=== PATIENT | female | born 2005 | race American Indian/Alaskan Native ===

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

== ENCOUNTER 2024-02-21 13:06 | Inpatient (IN) | payer OTHER ==
[2024-02-21] VITALS (7 sets, daily range): BP systolic 97–105; BP diastolic 50–64
[~2024-02-21] VITALS: Ht 175.3 cm; Wt 67.0 kg
[~2024-02-21 13:06] MED LIST: PEPCID20 MG PO; PREDNISONE20 MG PO; ZYRTEC10 MG PO
[2024-02-21 13:53] LABS: BASOPHILS 0.5 % (0-2); EOSINOPHILS 0.7 % (0-6); HEMATOCRIT 35.9 % (35.0-50.0); HEMOGLOBIN 11.6 g/dL (12.0-18.0); LYMPHOCYTES 22.5 % (24-44); MCH 27.7 (27-36); MCHC 32.3 g/dl (30-36); MCV 85.8 fl (81-99); MONOCYTES 7.7 % (0-12); NEUTROPHILS 68.6 % (39-80); PLATELET COUNT 258 K/uL (140-440); RBC 4.18 M/ul (4.3-5.7); RDW 16.9 (10.5-15.0)
[2024-02-21 14:09] LABS: ALBUMIN 3.8 g/dL (3.4-5.0); ALBUMIN/GLOBULIN RATIO 1.12 (1.1-2.4); ANION GAP 14.3 (7-21); BILIRUBIN, TOTAL 1.5 ng/dL (0.2-1.0); BUN/CREATININE RATIO 8.21 (6.0-28.6); CALCIUM 8.7 mg/dL (8.5-10.1); CREATININE, SERUM 0.73 mg/dL (0.55-1.02); POTASSIUM 3.3 mmol/L (3.5-5.1); PROTEIN, TOTAL 7.2 g/dL (6.4-8.2)
[2024-02-21] MEDS ORDERED: ondansetron HCL 4 MG/2 ML VIAL IV ONE (14:30)
[2024-02-21] MEDS ORDERED: fentaNYL citrate 100 MCG/2 ML VIAL IV ONE (14:30)
[2024-02-21] MEDS ORDERED: SODIUM CHLORIDE 0.9% 1,000 ML IV ONE (14:30)
[2024-02-21 15:49] LABS: BILIRUBIN, URINE NEGATIVE (negative); BLOOD/HGB, URINE TRACE-I (Negative); KETONE, URINE SMALL (Negative); LEUK ESTERASE, URINE NEGATIVE (negative); NITRITE, URINE NEGATIVE (negative); PH, URINE 5.5 (5-7)
[2024-02-21 16:00] LABS: BACTERIA, URINE RARE /hpf (negative); CASTS, URINE NONE SEEN \\lpf; COLLECTION TYPE, URINE CLEAN CATCH; CRYSTALS, URINE NONE SEEN (0-1+); EPITHELIAL CELLS, URINE SQUAMOUS 4+ /lpf (0-1+); RED BLOOD CELLS, URINE 0-1 /hpf (0-5); REFLEX CULTURE, URINE No (No)
[2024-02-21] MEDS ORDERED: CEFTRIAXONE/SODIUM CHLORIDE 1 GM/100 ML PIGGYBACK IV ONE (17:00)
[2024-02-21 17:45] LABS: INR 1.19 (0.80-1.30); PROTIME 14.3 Sec (11.2-14.2)
[2024-02-21] MEDS ORDERED: HEParin SOD (PORCINE) 5,000 UNIT/0.5 ML SYR SUB-Q ONE (17:45)
[2024-02-21] MEDS ORDERED: MIDAZOLAM HCL 2 MG/2 ML VIAL ONE (18:02)
[2024-02-21] MEDS ORDERED: LIDOCAINE HCL 2% 5 ML SDV ONE (18:02)
[2024-02-21] MEDS ORDERED: propofoL 200 MG/20 ML VIAL ONE (18:02)
[2024-02-21] MEDS ORDERED: LIDOCAINE HCL 2% 20 MG/ML VIAL INJ ONE (18:02)
[2024-02-21] MEDS ORDERED: ROCURONIUM BROMIDE 50 MG/5 ML SYR ONE (18:02)
[2024-02-21] MEDS ORDERED: ACETAMINOPHEN 1,000 MG/100 ML VIAL ONE (18:02)
[2024-02-21] MEDS ORDERED: SUGAMMADEX SODIUM 200 MG/2 ML ML ONE (18:02)
[2024-02-21] MEDS ORDERED: fentaNYL citrate 100 MCG/2 ML VIAL ONE (18:02)
[2024-02-21] MEDS ORDERED: KETOROLAC TROMETHAMINE 30 MG/ML VIAL ONE (18:02)
[2024-02-21] MEDS ORDERED: DEXAMETHASONE SOD PHOS 4 MG/ML VIAL ONE (18:02)
[2024-02-21] MEDS ORDERED: SUCCINYLCHOLINE IN 0.9% NACL 200 MG/10 ML SYRINGE ONE (18:02)
[2024-02-21] MEDS ORDERED: ondansetron HCL 4 MG/2 ML VIAL ONE (18:02)
[2024-02-21] MEDS ORDERED: METOCLOPRAMIDE HCL 10 MG/2 ML SDV IV PRN (19:00)
[2024-02-21] MEDS ORDERED: PROCHLORPERAZINE EDISYLATE 10 MG/2 ML VIAL IV PRN ×2 (19:00→20:00)
[2024-02-21] MEDS ORDERED: IBLOOD GLUCOSE TEST STRIP 1 EA TEST VI PRN (19:00)
[2024-02-21] MEDS ORDERED: HYDROmorphone HCL 1 MG/ML SYR IV PRN ×2 (19:00→20:00)
[2024-02-21] MEDS ORDERED: ondansetron HCL 4 MG/2 ML VIAL IV PRN ×2 (19:00→20:00)
[2024-02-21] MEDS ORDERED: fentaNYL citrate 50 MCG/ML SDV IV PRN (19:00)
[2024-02-21] MEDS ORDERED: droPERidol 5 MG/2 ML VIAL IV PRN (19:00)
[2024-02-21] MEDS ORDERED: NALOXONE HCL 0.4 MG SYR IV PRN (19:00)
[2024-02-21] MEDS ORDERED: LACTATED RINGER'S 1,000 ML IV ONE (19:23)
--- NOTE | 2024-02-21 19:58 | CONS ---
[facility] [address], [place] [address] Signed DATE OF CONSULTATION: 02/21/2024 CHIEF COMPLAINT: Right lower quadrant abdominal pain. HISTORY OF PRESENT ILLNESS: Tram is a 18-year-old, healthy young lady, who presents with three days of increasing right lower quadrant abdominal pain associated with anorexia. She came to the emergency room for evaluation. She has localized peritonitis with a normal white count; however, the CT scan shows the appendix at 1.4 cm with periappendiceal inflammation. She has been given pain control, Rocephin and Flagyl. I was asked to see her as a local general surgeon here in the emergency room. PAST MEDICAL HISTORY: None. PAST SURGICAL HISTORY: None. SOCIAL HISTORY: She does not smoke or drink. She goes to [facility] for her primary care. Her mother is Jocelyn at [phone] and her cousin is Hannah at [phone]. 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 FAMILY HISTORY: None. REVIEW OF SYSTEMS: She had 10 systems reviewed. There were no new findings. ALLERGIES: None. MEDICATIONS: None. PHYSICAL EXAMINATION: VITAL SIGNS: Her blood pressure is 108/65, heart rate 72, respiratory rate 18, temperature is 97.8 100% on room air. She is 5 feet 9 inches tall, at 69 kg with a body mass index of 21. GENERAL: Tram is a 18-year-old young lady, lying supine in her ER bed, watching TV with her mom in the room. She does not appear systemically ill or toxic. She is alert, awake, and interactive. Electronically Signed By: BIANCA MORALES MD 02/21/241957 PATIENT NAME: TRAM BARBOSA CONSULTATION DATE OF : 04 REPORT #: [id number] PHYSICIAN: BIANCA MORALES MD PCP: [facility] REPORT IS CONFIDENTIAL AND NOT TO BE RELEASED WITHOUT AUTHORIZATION [facility] [address], [place] [address] Signed LUNGS: Clear to auscultation bilaterally. HEART: Regular rate and rhythm without murmurs. ABDOMEN: Soft and flat, but she has localized peritonitis slightly below McBurney's point in the right lower quadrant. LABORATORY DATA: Her white blood count 8.5, hemoglobin 11.6, and neutrophils 68. Electrolytes unremarkable. Albumin 3.8. Beta-hCG is negative. RADIOGRAPHIC STUDIES: CT scan of abdomen and pelvis is reviewed, both the report and the images. One can easily see the thickened appendix in the right lower quadrant with periappendiceal inflammation. She also has bilateral benign-appearing ovarian cyst. ASSESSMENT/PLAN: Tram is a 18-year-old young lady, who presents with appendicitis. I have reviewed with her the above findings as well as the location and function of the appendix. We have discussed laparoscopic versus open appendectomy. She understands expected intraop and postop course. We did review the risk including, but not limited to bleeding, infection, scarring, change in contour of the skin, damage to bowel, appendiceal stump leak, postoperative intraabdominal abscess, incisional hernias, and other unforeseen comorbidities. She and had her mom have expressed understanding, would like to proceed. MD CHET Avina/JESSICAL /[id number] cc: Patient Chart [facility] Bianca Morales MD Electronically Signed By: BIANCA MORALES MD 02/21/241957 PATIENT NAME: RAÚL TRAM WHITTAKER CONSULTATION DATE OF : 04 REPORT #: [id number] PHYSICIAN: BIANCA MORALES MD PCP: [facility] REPORT IS CONFIDENTIAL AND NOT TO BE RELEASED WITHOUT AUTHORIZATION [address] [place], [place] [address] Signed Copies: BIANCA MORALES MD ~ Electronically Signed By: BIANCA MORALES MD 02/21/241957 PATIENT NAME: TRAM BARBOSA CONSULTATION DATE OF : 04 REPORT #: [id number] PHYSICIAN: BIANCA MORALES MD PCP: [facility] REPORT IS CONFIDENTIAL AND NOT TO BE RELEASED WITHOUT AUTHORIZATION
[2024-02-21] MEDS ORDERED: DEXTROSE 5% - LACTATED RINGERS 1,000 ML IV SCH (20:00)
[2024-02-21] MEDS ORDERED: ACETAMINOPHEN 650 MG SUPP PR PRN (20:00)
[2024-02-21] MEDS ORDERED: ACETAMINOPHEN 325 MG TAB PO PRN (20:00)
[2024-02-21] MEDS ORDERED: HYDROCODONE/ACETA 5/325 TAB PO PRN (20:00)
[2024-02-21] MEDS ORDERED: PANTOPRAZOLE SODIUM 40 MG/10 ML VIAL IV SCH (20:02)
--- NOTE | 2024-02-21 20:03 | NUR ---
02/21/242002 Gertrudis Helton 1947- PT PRESENTS TO PACU, SUPINE POSITION, NON REACTIVE TO STIMULUS. LR INFUSING TO LFA IV. OPA IN PLACE WITH 6L OF O2 PER MASK, BREATHING EVEN AND NON LABORED, MAINTAINING OWN AIRWAY WITH JUST OPA. DRESSING IN PLACE TO ABD, SOFT, NON DISTENDED. ALL MONITORS IN PLACE. ICE PLACED TO ABD. 1955- PT REACTIVE TO STIMULUS, TURNS HEAD TOWARD VOICE. COUGHING SOME, OPA REMOVED, THICK BLOODY SPUTUM CAME WITH OPA. O2 REMAINS IN PLACE AT THIS TIME. PT KEEPS EYES CLOSED BUT DENIES PAIN OR NAUSEA. 1956- MOVED TO ROOM AIR AT THIS TIME. 2001- PT FOLLOWS COMMANDS AND ANSWERS QUESTIONS BUT KEEPS EYES CLOSED. PT CONTINUES TO REST. PT MAKING SMALL SOUNDS IN SLEEP.
--- NOTE | 2024-02-21 20:44 | NUR ---
PATIENT ARRIVED TO UNIT AROUND 2019. REPORT RECEIVED FROM OR NURSE. LAP SITES X 3 CDI. PATIENT C/O TOLLERABLE PAIN AT THIS TIME 12/08. DENIED NEED FOR PAIN MEDICATIONS AT THIS TIME. BOWEL TONES ABSENT AT THIS TIME. DENIES ANY NAUSEA. MAINTANCE IVF HUNG. INFUSING WITH NO ISSUES OR CONCERNS. VSS. FAMILY AT BEDSIDE. CALL LIGHT WITHIN REACH.
--- NOTE | 2024-02-21 21:20 | NUR ---
STOCKROOM COORDINATOR ENTERED ROOM AND SBA PT TO BATHROOM WITH IV TOWER. PT FINISHED AND STOCKROOM COORDINATOR SBA BACK TO BED. CPOX MONITOR PLUGGED BACK IN SCDS BACK ON. PT STATES NO FURTHER NEEDS AT THIS TIME. CALL LIGHT WITHIN REACH
--- NOTE | 2024-02-21 21:36 | NUR ---
PATIENT RESTING IN BED FAMILY AT BEDSIDE. IVF INFUSING WITH NO ISSUES. DRESSING TO ABD REMAIN CDI. C/O CRAMPS IN LOWER ABD. VSS. CALL LIGHT WITHIN REACH.
--- NOTE | 2024-02-21 22:27 | NUR ---
CALL LIGHT ANSWERED. PT NEEDED TO USE BATHROOM. ROLLER INSPECTOR SBA TO BATHROOM. ONCE FINSIHED PT AMBULATED BACK TO BED. SCDS PLACED BACK ON, CPOX RECONNECTED, AND IV PUMP PLUGGED BACK IN. PT REPORTED PAIN AND ASKED FOR PAIN MEDS. RN NOTIFIED. PT STATES NO FURTHER NEEDS AT THIS TIME. CALL LIGHT PLACED WITHIN REACH.
--- NOTE | 2024-02-21 22:36 | NUR ---
AUTO TESTER ENTERED ROOM AND OBTAINED PT VITALS. PT STATES NO FURTHER NEEDS AT THIS TIME. CALL LIGHT PLACED WTIHIN REACH.
[2024-02-21] MEDS ORDERED: PANTOPRAZOLE SODIUM 40 MG/10 ML VIAL ONE (22:39)
[2024-02-21] MEDS ORDERED: HYDROCODONE/ACETA 5/325 TAB ONE (23:36)
--- NOTE | 2024-02-21 23:46 | NUR ---
PATIENT RESTING IN BED WITH EYES CLOSED. RESPIRATIONS EVEN AND UNLABORED. FAMILY AT BEDSIDE. IVF INFUSING WITH NO ISSUES OR CONCERNS. VSS. C/O PAIN PRN GIVEN SEE MAR. DRESSINGS TO ABD REMAIN CDI. DENIES ANY NAUSEA, REPORTS FEELING BLOATED. NO FURTHER NEEDS AT THIS TIME. CALL LIGHT WITHIN REACH.
[2024-02-22] VITALS (10 sets, daily range): BP systolic 89–105; BP diastolic 44–55
--- NOTE | 2024-02-22 00:46 | NUR ---
CALL LIGHT ANSWERED. PT NEEDED TO USE BATHROOM. PRODUCT MARKETING INTERN SBA TO BATHROOM THEN BACK TO BED. CPOX RECONNECTED AND SCDS BACK IN PLACE. PT STATES NO FURTHER NEEDS AT THIS TIME. CALL LIGHT WITHIN REACH.
--- NOTE | 2024-02-22 04:19 | NUR ---
PATIENT RESTING IN BED. AWAKE READING ON HER PHONE. REPORTS PAIN LEVEL IS 1/10, DULL ACHY PAIN IN LOWER ABD. IVF INFUSING WITH NO ISSUES OR CONCERNS. DRESSING TO ABD REMAIN CDI. NEW BAG OF IVF HUNG. NO FURTHER NEEDS AT THIS TIME. CALL LIGHT WITHIN REACH.
[2024-02-22 05:28] LABS: BASOPHILS 0.1 % (0-2); HEMATOCRIT 30.5 % (35.0-50.0); HEMOGLOBIN 10.1 g/dL (12.0-18.0); MCH 28.2 (27-36); MCHC 33.1 g/dl (30-36); MCV 85.2 fl (81-99); MONOCYTES 6.4 % (0-12); NEUTROPHILS 85.5 % (39-80); PLATELET COUNT 221 K/uL (140-440); RBC 3.57 M/ul (4.3-5.7); RDW 17.2 (10.5-15.0)
[2024-02-22 05:39] LABS: ANION GAP 13.5 (7-21); BUN/CREATININE RATIO 6.15 (6.0-28.6); CREATININE, SERUM 0.65 mg/dL (0.55-1.02); MAGNESIUM 1.7 mg/dL (1.8-2.4); POTASSIUM 3.5 mmol/L (3.5-5.1)
--- NOTE | 2024-02-22 06:15 | NUR ---
PATIENT RESTING IN BED. AROUSES EAISLY WHEN ENTERING ROOM. DRESSINGS CDI. IVF INFUSING WITH NO ISSUES. NEW BAG OF ICE GIVEN/APPLIED TO ABD. REPORTS PAIN IS 1/10 AT THIS TIME. NO FURTHER NEEDS AT THIS TIME. CALL LIGHT WITHIN REACH.
--- NOTE | 2024-02-22 06:19 | OR ---
[facility] [address], [place] [address] Signed DATE OF OPERATION: 02/21/2024 SURGEON: Bianca Morales MD PREOPERATIVE DIAGNOSIS: Acute suppurative appendicitis. POSTOPERATIVE DIAGNOSIS: Acute suppurative appendicitis. PROCEDURE: Laparoscopic appendectomy. ESTIMATED BLOOD LOSS: None. FINDINGS: Tram indeed had suppurative appendicitis consistent with her CT scan. INDICATIONS: Tram is a 18-year-old young lady, who is home from college for the summer. She has had three days of increasing right lower quadrant abdominal pain. She has been anorexic since yesterday. She came to emergency room for evaluation. She was not systemically ill or toxic, but she had localized peritonitis in the right lower quadrant. White count was actually normal. CT scan confirmed her thickened inflamed appendix and bilateral ovarian simple cyst. I have been asked to see her in the emergency room as a general surgeon on-call. She had been given Rocephin and Flagyl along with some pain control. I explained to Tram and her mother above findings. We reviewed the location of function of the appendix. We discussed laparoscopic versus open appendectomy. She understands expected intraop and postop course. There is risk including, but not limited to bleeding, infection, scarring, change in contour of the skin, damage to bowel, appendiceal stump leak, postoperative intra-abdominal abscess, incisional hernias and other unforeseen comorbidities. She had expressed understanding and wished to proceed. PROCEDURE IN DETAIL: Tram was taken in the operating room and placed in the supine position under general endotracheal tube anesthesia. She was given her preoperative antibiotics along with subcutaneous heparin. SCDs were utilized. A Richardson catheter was placed without difficulty with return of clear yellow urine. She was prepped and draped in the usual Electronically Signed By: BIANCA MORALES MD 02/22/24 0619 PATIENT NAME: TRAM BARBOSA OPERATIVE REPORT DATE OF : 04 REPORT #: [id number] PHYSICIAN: BIANCA MORALES MD PCP: [facility] REPORT IS CONFIDENTIAL AND NOT TO BE RELEASED WITHOUT AUTHORIZATION [facility] [address], [place] [address] Signed sterile fashion. We placed our trocars in our usual positions under direct visualization of camera without difficulty. We were able to sweep the omentum off the appendix in the cecum and terminal ileum. We cleared off the base of the appendix with the help of the cautery. The base of the appendix was divided from the cecum with the linear stapler. She did have some inflammatory changes right up to the base of the cecum. We felt like that was a good staple line across the cecum. We then divided the mesoappendix with a vascular load. After this, the appendix was placed into an EndoCatch bag and taken out through the right subcostal trocar site. We went back and reinspected both staple lines. They were quite hemostatic. After this, we used our laparoscopic suturing device to pass 0-Vicryl suture on either side of the fascia of the right subcostal trocar site. This was tied down to close this fascia primarily. After this, all the gas was allowed to escape and all the trocars were removed. We closed the fascia of the supraumbilical trocar site with interrupted [id number] and simple 0-Vicryl sutures. Local anesthetic was copiously injected into all three trocar sites. Each trocar site was irrigated and suctioned out until clear. The skin and dermis of each trocar site were closed with interrupted 3-0 subcuticular Monocryl sutures. We used half-inch Steri-Strips and benzoin on the supraumbilical trocar site and the right subcostal trocar site. Dry gauze and tape were then applied to all three incisions. After this, the Richardson catheter was removed without difficulty. Tram was then awakened from anesthesia, extubated in the OR, and taken to recovery room in stable condition. Bianca Morales MD ALB/MODL /[id number] cc: MD Helena Avina PA-C [facility] Copies: BIANCA MORALES MD ~ Electronically Signed By: BIANCA MORALES MD 02/22/24 0619 PATIENT NAME: TRAM BARBOSA OPERATIVE REPORT DATE OF : 04 REPORT #: [id number] PHYSICIAN: BIANCA MORALES MD PCP: [facility] REPORT IS CONFIDENTIAL AND NOT TO BE RELEASED WITHOUT AUTHORIZATION
[2024-02-22] MEDS ORDERED: MAGNESIUM SULFATE 2 GM/50 ML BAG IV ONE (06:30)
--- NOTE | 2024-02-22 07:10 | NUR ---
RECEIVED REPORT FROM MADELEINE AWAD WITH MADELEINE COUGHLIN. PT RESTING IN BED, RESPONDS WHEN ADDRESSED. MADELEINE AWAD ADJUSTING IV FLUIDS PT REPORTING "BURNING" IN LEFT ARM WITH MAGNESIUM ADMINISTRATION. RATE ADJUSTED, ICE PACK APPLIED. PT REPORTS "FEELS MUCH BETTER". CALL LIGHT IN REACH, NO OTHER NEEDS NOTED.
--- NOTE | 2024-02-22 07:20 | NUR ---
REPORT RECIEVED FROM MADELEINE AWAD. PT LAYING IN BED AND RESPONDS WHEN ADDRESSED. IV FLUSHES WNL. ICE PACK PROVIDED PT REPORTING "BURNING" WITH MAGNESIUM INFUSION. PT DENIES ANY OTHER NEEDS AT THIS TIME. CALL LIGHT IN REACH.
--- NOTE | 2024-02-22 08:08 | NUR ---
JAJA MORALES/Luis SCHULTZ, RN, TO CHANGE PATIENT STATUS FROM OBSERVATION TO INPATIENT.
--- NOTE | 2024-02-22 08:09 | NUR ---
UR CLINICAL REVIEW: [facility] INPATIENT 02/22/24 @ 0809 ORDER MATCHES STATUS AUTH PENDING CLINICAL REVIEW DISCHARGE HOME WHEN STABLE 02/22/24 CONCURRENT REVIEW DUE 02/25/24
--- NOTE | 2024-02-22 08:52 | NUR ---
IN WITH MADDIE TO ROUND ON PT. PT LAYING IN BED AND RESPONDS WHEN ADDRESSED. PT REPORTING ABD PAIN 3/10 TO LOWER ABD. ICE PACK IN PLACE. PRN PAIN MEDICAITON ADMINISTERED PREVIOUSLY. ASSESSMENT COMPLETE. LUNG SOUNDS CLEAR. BOWEL TONES ACIVE. ABD SOFT, TENDER WTIH PALPATION. PT DENIES NAUSEA AT THIS TIME. IV FLUSHES AND IS INFUSING WNL. PT DENIES ANY OTHER NEEDS AT THIS TIME. CALL LIGHT IN REACH.
[2024-02-22] MEDS ORDERED: CEFTRIAXONE/SODIUM CHLORIDE 2 GM/100 ML PIGGYBACK IV SCH (09:00)
[2024-02-22] MEDS ORDERED: ENOXAPARIN SODIUM 40 MG/0.4 ML SYR SUB-Q SCH (09:00)
--- NOTE | 2024-02-22 10:47 | NUR ---
UNABLE TO VISIT DURING PASTORAL CARE ROUNDS; PT RECEIVING NURSING CARE. PROVIDED PRAYER. WILL FOLLOW UP CIRCUMSTANCES WARRANT.
--- NOTE | 2024-02-22 11:00 | NUR ---
Spoke with Svitlana. She is home for the summer from college. She is staying with her Aunt. Pt denies needs, she does not use any DME. She States stated she may stay a day or two as she was sick for a few days prior to her appy. Pt and Aunt denies financial needs and Aunts states she will assist pt as needed. Home when cleared by Dr. Barker. Appt scheduled with pt Paulo Mead at [facility] february 28 at 11:30 for fu.
[2024-02-22] MEDS ORDERED: IBU-200200 MG PO (11:23)
[2024-02-22] MEDS ORDERED: GAS-X125 M1 PO (11:24)
[2024-02-22] MEDS ORDERED: TUMS200 MG PO (11:24)
--- NOTE | 2024-02-22 11:24 | NUR ---
MED REC COMPLETE
--- NOTE | 2024-02-22 11:55 | NUR ---
IN TO ROUND ON PT. PT LAYING IN BED AND RESPONDS WHEN ADDRESSED. ASKED PT TO AMBULATE. PT AGREEABLE. PT AMBULATES STARKS SBA WITH THIS RN AND SN MADDIE. PT HAS SLOW STEADY GAIT. 1200BACK IN ROOM. PT REPORTING PAIN 3/10 TO ABD. PRN PAIN MEDICATION ADMINISTERED, SEE MAR. PT TAKES PO MEDICAITON WITH NO ISSUES. ICE PACK PROVIDED. PT REPORTING TOILETING NEEDS. SBA FROM BED TO RESTROOM AND BACK TO BED. VOID NOTED. PT DENIES ANY OTHER NEEDS AT THIS TIME. CALL LIGHT IN REACH. FAMILY IN ROOM.
--- NOTE | 2024-02-22 13:50 | NUR ---
IN TO ROUND ON PT. PT LAYING IN BED AND RESPONDS WHEN ADDRESSED. CARMEN ROTHMAN IN ROOM OBTAINING VITALS. PT STATES PAIN "IS OKAY." PT DENIES ANY PRN PAIN MEDICATION AT THIS TIME. PT DENIES ANY NEEDS FROM THIS RN. CALL LIGHT IN REACH. FAMILY IN ROOM. CARMEN ROTHMAN REMAINS IN ROOM.
--- NOTE | 2024-02-22 14:10 | NUR ---
SUCTION PLATE CARRIER CLEANER ENTERED ROOM TO TAKE PT VITALS. PT WAS SLEEPING. SUCTION PLATE CARRIER CLEANER WOKE PT UP TO TAKE A BLOOD PRESSURE. BP WAS LOW AT 86/46. SUCTION PLATE CARRIER CLEANER WAITED AND RETOOK BP. IT WAS 89/44. SUCTION PLATE CARRIER CLEANER NOTIFIED RN WILL RETAKE IN 15 MINUTES
--- NOTE | 2024-02-22 15:51 | NUR ---
IN WITH MADDIE, SN TO ROUND ON PT. IV PUMP ALARMING, RESOLVED. NEW BAG OF FLUIDS STARTED, SEE MAR. ASSESSMENT COMPLETE. BOWEL TONES ACTIVE. ABD SOFT, YET TENDER WITH PALPATION. PT REPORTING PAIN 3/10 TO ABD. PT UP TO AMBULATE STARKS ABD. 3 LAP SITES NOTED. RIGHT UPPER ABD DRESSING D/I WITH SCANT AMOUNT OF SHADOWING NOTED. MID UPPER ABD DRESSING C/D/I. MIDLINE LOWER ABD DRESSING C/D/I. PT REQUESTING PRN PAIN MEDICATION AFTER AMBULATING STARKS.
--- NOTE | 2024-02-22 15:57 | NUR ---
PT BACK IN ROOM FROM AMBULATING STARKS X1 LAP. PT REPORTING PAIN 01/08. PRN PAIN MEDICATION ADMINISTERED, SEE NOV. PT SITTING UP IN BED. NEW ICE PACK PROVIDED. PT DENIES ANY OTHER NEEDS AT THIS TIME. CALL LIGHT IN REACH.
--- NOTE | 2024-02-22 17:11 | NUR ---
IN TO ROUND ON PT. PT HAS DINNER TRAY OF CLEAR LIQUIDS AT BEDSIDE. PT REPORTS NO PAIN AT THE MOMENT, HAS NO REQUESTS. CALL LIGHT IN REACH.
--- NOTE | 2024-02-22 18:15 | NUR ---
IN TO ROUND ON PT. PT SITTING UP IN BED WITH DINNER TRAY. UPDATED PT ON ADVANCING DIET. PT REQUESTING CHOCOLATE PUDDING, PROVIDED. DRESSINGS X3 REMOVED PER DR. MORALES. PT DENIES ANY OTHER NEEDS AT THIS TIME. CALL LIGHT IN REACH.
--- NOTE | 2024-02-22 19:15 | NUR ---
REPORT RECEIVED FROM AM RN. PT IN BED, WITH DINNER TRAY IN FRONT OF HER, SHE WAS EATING PUDDING. NO NEEDS AT THIS TIME.
--- NOTE | 2024-02-22 19:30 | NUR ---
ROUNDED ON PT, STATED SHE WAS HURTING, GOES FROM A "4 - 6" AND DROPS BACK DOWN. OFFERED AND ACCEPTED TYLENOL.
--- NOTE | 2024-02-22 20:20 | NUR ---
CHECKED ON PT, STATED HER PAIN IS LESS, FAMILY AT BEDSIDE, NO OTHER NEEDS AT THIS TIME.
--- NOTE | 2024-02-22 21:44 | NUR ---
PATIENT RESTING IN BED. VSS. LOW GRADE FEVER NOTED. EDUCATED PATIENT ON USE OF IS. PATIENT DEMONSTRATED HOW TO USE IS. DENIES NEED TO USE BATHROOM AT THIS TIME. IVF INFUSING WITH NO ISSUES OR CONCERNS. SURGICAL INCISIONS REMAIN WELL APPROXIMATED, STERI STRIPS TO UPPER TWO INCISIONS INTACT. NO C/O PAIN AT THIS TIME. REPORTS FEELING BLOATED. NO FURTHER NEEDS AT THIS TIME. CALL LIGHT WITHIN REACH.
--- NOTE | 2024-02-22 23:43 | NUR ---
PT AWAKE AND ALERT, UP TO BR TO VOID, NURSE ASSIST WITH IV, PT VOIDED 300ML SOPHIA URINE, ICE PACK TO ABDOMEN, PT DENIES OTHER NEEDS, RESTING IN BED, IVF INFUSING WELL.
--- NOTE | 2024-02-23 00:23 | NUR ---
PATIENT RESTING IN BED WITH FREIENDS AT BEDSIDE. C/O PAIN 03/10. PRN GIVEN. PATIENT IS EAGER TO EAT SOLID FOODS SHE REQUESTED TO HAVE A BITE OF PIZZA. PATIENT WAS EDUCATED ABOUT PRECAUTIONS OF HELENE TOMAS ORDERED DIET. PATIENT UNDERSTANDING OF EDUCATION. NO FURTHER NEEDS AT THIS TIME. CALL LIGHT WITHIN REACH.
--- NOTE | 2024-02-23 02:35 | NUR ---
PATIENT RESTING IN BED WITH FRIENDS AT BEDSIDE. AWAKE WATCHING TV. NO NEEDS AT THIS TIME. CALL LIGHT WITHIN REACH.
--- NOTE | 2024-02-23 04:11 | NUR ---
PATIENT RESTING IN BED WITH EYES CLOSED. RESPIRATIONS EVEN AND UNLABORED. CALL LIGHT WITHIN REACH.
[2024-02-23 05:13] VITALS: BP 109/54
[2024-02-23 05:16] VITALS: BP 109/54
--- NOTE | 2024-02-23 05:17 | NUR ---
PATIENT RESTING IN BED WITH EYES CLOSED. RESPIRATIONS EVEN AND UNLABORED. IV SITE REMAIN PATENT. MAINTANCE FLUIDS INFUSING WITH NO ISSUES OR CONCERNS. VSS. REPORTS PAIN IS TOLLERABLE AT THIS TIME. NO FURTHER NEEDS AT THIS TIME. CALL LIGHT WITHIN REACH.
--- NOTE | 2024-02-23 07:00 | NUR ---
REPORT RECIEVED FROM MADELEINE AWAD. PT RESTING IN BED WITH EYES CLOSED, RR EVEN AND UNLABORED. FRIENDS/FAMILY IN ROOM. IV INFUSING WNL. NO NEEDS IDENTIFIED OR REPORTED AT THIS TIME. CALL LIGHT IN REACH.
--- NOTE | 2024-02-23 08:16 | NUR ---
IN WITH SN MADDIE TO ADMINISTER MEDICATIONS, SEE MAR. PT TAKES PO MEDICAITONS WITH NO ISSUES. PT REPORTING PAIN 01/08. PRN TYLENOL ADMINISTERED, SEE NOV. IV FLUSHES WNL AND IS INFUSING WNL. BREAKFAST TRAY ARRIVES. PT DENIES ANY OTHER NEEDS AT THIS TIME. CALL LIGHT IN REACH. FAMILY IN ROOM.
[2024-02-23] MEDS ORDERED: PANTOPRAZOLE SODIUM 40 MG TABEC PO SCH (09:00)
[2024-02-23] MEDS ORDERED: SENNOSIDES/DOCUSATE 1 EA TAB PO SCH (09:00)
[2024-02-23] MEDS ORDERED: POLYETHYLENE GLYCOL 3350 1 PACKET PO SCH (09:00)
[2024-02-23] MEDS ORDERED: COLACE100 MG PO (09:12)
[2024-02-23] MEDS ORDERED: OXYCODONE HCL5 MG PO (09:12)
[2024-02-23] MEDS ORDERED: BACTRIM DS TAB1 EACH PO (09:13)
[2024-02-23] MEDS ORDERED: TYLENOL325 MG PO (09:14)
[2024-02-23] MEDS ORDERED: ADVIL200 MG PO (09:14)
[2024-02-23] MEDS ORDERED: MIRALAX119 GM PO (09:16)
[2024-02-23] MEDS ORDERED: DULCOLAX5 MG PO (09:16)
--- NOTE | 2024-02-23 09:26 | NUR ---
IN WITH SN MADDIE TO ADMINISTER MEDICATION, SEE MAR. PT LAYING IN BED WITH EYES CLOSED, RR EVEN AND UNLABORED. PT AWAKENS AND RESPONDS WHEN ADDRESSED. PT DENIES ANY NEEDS AT THIS TIME. CALL LIGHT IN REACH. FAMILY IN ROOM.
[2024-02-23 10:25] VITALS: BP 97/54
--- NOTE | 2024-02-23 10:25 | NUR ---
IN WITH MADDIE, SN TO ROUND ON PT. PT RESTING IN BED WITH EYES CLOSED, RR EVEN AND UNLABORED. PT AWAKENS AND RESPONDS WHEN ADDRESSED. ASSESSMENT COMPLETE. LUNG SOUNDS CLEAR. BOWEL TONES ACTIVE. ABD SOFT AND SLIGHTLY TENDER WITH PALPATION. 3 LAP SITES. MIDLINE LOWER LAP SITE OPEN TO AIR, DRY, NO REDNESS NOTED, NOT WARM TO TOUCH. RIGHT MID UPPER LAP SITE STERI-STRIPS IN PALCE WITH SCANT AMOUNT OF SHADOWING NOTED, OTHERWISE D/I, NOT WARM TO TOUCH. MIDLINE UPPER LAP SITE STERI-STRIPS IN PLACE WITH SCANT AMOUNT OF SHADOWING NOTED, OTHERWISE D/I.
[2024-02-23 10:35] VITALS: BP 97/54
--- NOTE | 2024-02-23 10:47 | NUR ---
PT REQUESTING PRN PAIN MEDICATION PRIOR TO LEAVING. PT REPORTING PAIN 5/10 TO ABD. PRN PAIN MEDICAITON ADMINISTERED, SEE MAR.
--- NOTE | 2024-02-23 10:51 | DS ---
[facility] [address], [place] [address] Signed ADMISSION DATE: 02/22/2024 DISCHARGE DATE: 02/23/2024 FINAL DIAGNOSIS: Acute suppurative appendicitis. PROCEDURES: 1. Laparoscopic appendectomy. 2. CT scan of abdomen and pelvis. HISTORY OF PRESENT ILLNESS: Tram is a 18-year-old young lady, who is home for summer break from college. She developed three days of increasing right lower quadrant abdominal pain. She finally came to emergency room for evaluation. Her white count was normal, but she certainly had localized peritonitis on physical exam in the right lower quadrant just below McBurney's point. Beta-hCG was negative. The CT scan confirmed her 1.4 cm thickened and inflamed appendix. She had periappendiceal inflammation. She had bilateral benign ovarian cyst. I have been asked to admit her as a general surgeon on-call. HOSPITAL COURSE: Tram was admitted as above and started on Rocephin and Flagyl along with her pain control and IV fluids. She went to the operating room later that day for uncomplicated laparoscopic appendectomy for her acute suppurative appendicitis. Her intra and postop course were uncomplicated. She is passing lots of gas and tolerating full liquid diet. Her abdomen is flat, soft and just a little bit tender at the incisions and in the right lower quadrant as expected. However, the peritonitis has resolved. We kept her on Rocephin and Flagyl during her hospital stay. She has been up ambulating in the hallways. Her mom and three sisters have been in to visit her. At this point, we are going to be discharging her to home with her family. DISCHARGE PLANS AND MEDICATIONS: Tram is going to go home with Bactrim DS one tablet p.o. b.i.d. We will dispense 10 tablets with no refills. She is given oxycodone immediate release 5 mg tablets one tablet p.o. q.6 hours p.r.n. for severe pain, dispensed 15 tablets with no refills. She is given Colace 100 mg one tablet p.o. b.i.d. We will dispense 15 tablets with no refills. She can use Dulcolax and MiraLAX p.r.n. for constipation and purchase that ebne-prl-drjkdpg. She can also use Tylenol, ibuprofen or Aleve as needed for mwsp-ij-dlyhgefp pain, which can be purchased yyef-how-qegaggs. She takes no chronic medications. She is going to continue a regular diet at home. She is welcome to perform her activities of daily living including walking up and downstairs and showering and bathing as usual. She is not to do any heavy pushing, pulling, or lifting over Electronically Signed By: BIANCA MORALES MD 02/23/24 1051 PATIENT NAME: TRAM BARBOSA DISCHARGE SUMMARY DATE OF : 04 REPORT #: [id number] PHYSICIAN: BIANCA MORALES MD PCP: [facility] REPORT IS CONFIDENTIAL AND NOT TO BE RELEASED WITHOUT AUTHORIZATION [facility] [address] [place] [id number] Signed about 20 pounds. She is not to be submerged in local streams or lakes. We are going to have her back in the office in about 7 to 14 days for a followup. I have reviewed this with Tram and her family. She has expressed understanding and agrees with the above plan. Bianca Morales MD [facility]/MODL /[id number] cc: MD Bianca Potts MD Copies: VICKI MEAD MD, ANDREW L MD ~ Electronically Signed By: BIANCA MORALES MD 02/23/24 1051 PATIENT NAME: RAÚL WHITTAKERTRAM L DISCHARGE SUMMARY DATE OF : 04 REPORT #: [id number] PHYSICIAN: BIANCA MORALES MD PCP: [facility] REPORT IS CONFIDENTIAL AND NOT TO BE RELEASED WITHOUT AUTHORIZATION
--- NOTE | 2024-02-27 10:56 | PATH ---
[facility] [address] [place], [place] [address] Signed SPECIMEN(S): A APPENDIX SPECIMEN SOURCE: A. APPENDIX CLINICAL HISTORY: Acute appendicitis FINAL PATHOLOGIC DIAGNOSIS: Appendix, appendectomy: - Morphologic features of acute appendicitis. NA MICROSCOPIC EXAMINATION: Histologic sections of all submitted blocks are examined by light microscopy. These findings, together with the gross examination, support the pathologic diagnosis. GROSS DESCRIPTION: The specimen, labeled and designated "Raúl Whittaker, " and designated on the requisition "appendix," is received in formalin and consists of Specimen: Appendix with mesoappendix. Dimensions: 5.0 x 2.6 x 1.2 cm. Serosa: Seven Devils-young to red-brown with adherent white-yougn exudate. Defect: Not grossly identified. Inking: Staple line is inked black. Mucosa: Seven Devils-young to red-brown. Fecalith: Not grossly identified. Additional: None. Assessment Services Manager sections are submitted in (A1). AC (under the direct supervision of a pathologist) The Gross Description was prepared using a voice recognition system. The report was reviewed for accuracy; however, sound-alike word errors, addition and/or deletions may occur. If there is any question about this report, please contact Client Services. ADDITIONAL NOTES: Immunohistochemical and/or in situ hybridization studies if performed in this case included appropriate positive controls that reacted as expected. This test was developed and its performance characteristics determined by [facility]. It has not been cleared or PATIENT NAME: RAÚL TRAM WHITTAKER PATHOLOGY DATE OF : [birth year] REPORT #: [id number] PHYSICIAN: SCOTTY MONGE PCP: [facility] REPORT IS CONFIDENTIAL AND NOT TO BE RELEASED WITHOUT AUTHORIZATION [address] [place] [address] Signed approved by the U.S. Food and Drug Administration. The FDA has determined that such clearance or approval is not necessary. This test is used for clinical purposes. It should not be regarded as investigational or for research. [facility] is certified under the Clinical Laboratory Improvement Amendments of 1988 (CLIA) as qualified to perform high complexity clinical laboratory testing. PERFORMING LABORATORY: Technical component was performed by [facility], [address] [place] [address] (CLIA# [id number]). Professional interpretation was performed by [facility], [address] [place] [address] (CLIA#: [id number]). Diagnostician: Stefano Ramirez MD Pathologist Electronically Signed 02/27/2024 Copies: ~ PATIENT NAME: TRAM BARBOSA PATHOLOGY DATE OF : [birth year] REPORT #: [id number] PHYSICIAN: SCOTTY PATHOLOGY PCP: [facility] REPORT IS CONFIDENTIAL AND NOT TO BE RELEASED WITHOUT AUTHORIZATION
== END 2024-02-23 10:50 | disposition home or self-care (01) | DRG 399 ==
LOC: ED 13:06 → MS 13:07
PROVIDERS: Emergency Medicine; ADMIT Colon & Rectal Surgery; ATTEND Colon & Rectal Surgery
PROC: 0DTJ4ZZ Resection of Appendix, Percutaneous Endoscopic Approach (ICD-10-PCS; principal; 2024-02-21 18:30)
DX: K35.30 Acute appendicitis with localized peritonitis, without perforation or gangrene (principal); E83.42 Hypomagnesemia; R63.0 Anorexia; Z79.899 Other long term (current) drug therapy; Z68.21 Body mass index [BMI] 21.0-21.9, adult
CPT/HCPCS: 00840; 36415; 74177; 80048; 80053; 81001; 83690; 83735; 84100; 84703; 85025; 85610; 96375; 99285-25; A9270; C9113; J0131; J0330; J0696; J1100; J1170; J1650; J1885; J2001; J2250; J2405; J2704; J3010; J3475; J3490; J7030; J7121; Q9967